=== PATIENT | male | born 1990 | race Caucasian/White ===

== ENCOUNTER 2017-11-05 15:11 | Emergency (ER) | payer OTHER ==
--- NOTE | 2017-11-05 17:18 | EDM.PDOC ---
ED HPI GENERAL MEDICAL PROBLEM - General Chief Complaint: Chemical Exposure Stated Complaint: CHEMICAL SPLASHED IN EYE Time Seen by Provider: 11/05/17 16:17 Source of Information: Reports: Patient History Limitations: Reports: No Limitations - History of Present Illness INITIAL COMMENTS - FREE TEXT/NARRATIVE: 26-year-old male presents for evaluation and treatment of chemical burn to the right eye. Patient reports that the injury occurred around noon. He states that he was at work. Reports that there was some sodium hydroxide in a pipe and it was pressurized. He states that he got splashed underneath his safety goggles in the right eye. He reports immediate pain. He Rinsed the eye for 10 minutes. They then contacted a physician, who is on-call for the company, He instructed them to wait to see if his symptoms will resolve. After not having much pain relief he decided to come to the ER. He was working [place] hour [place] [employer]. He is currently complaining of severe right eye pain, increased tearing, right blurry vision and double vision. No trauma to the left eye. He does not wear glasses or contacts. Reports has been several years since he was last seen in eye doctor. He states that his vision was better than 20/20. Poison was controlled call initially when the patient presented to the ER. Instructed to rinse the eye for 20 minutes. Instructed make sure the pH of the left eye is between 7 and 7.5. If not, continue to rinse the eye. He is unable to rinse the eye recommend proparacaine and a Cristofer lens. MSDS was faxed to the ER from the patient's work. They instructed rinsing at least continuously for 30 minutes. The sodium hydroxide is an alkali and causes eye damage, category 1. Acute and delayed symptoms include serious eye damage, cloudy appearance of Cornea, chemical linda, severe pain, tearing, ulcerations, significant thickening, impaired Vision or complete loss of vision. Onset: Today Right Eye Pain Score (Numeric/FACES): 5 - Related Data Allergies Allergy/AdvReac Type Severity Reaction Status Date / Time No Known Allergies Allergy Verified 11/05/17 16:38 Home Meds: Home Meds Erythromycin Base [Erythromycin 0.5% Ophth Oint] 1 applic EARRT Q4H #1 tube 10/12 [Rx] Ketorolac [Acular 0.5% Ophth Soln] 1 drop EYERT QID PRN #1 bottle 11/05/17 [Rx] Lisinopril 5 mg PO DAILY 11/05/17 [History] ED ROS GENERAL - Review of Systems Review Of Systems: See Below HEENT: Reports: Eye Discharge (increased tearingr), Eye Pain (right), Vision Change (blurry vision, double vision) ED EXAM, BURN/SMOKE INHALATION - Physical Exam Exam: See Below Exam Limited By: No Limitations General Appearance: Alert, WD/WN, Mild Distress Eye Exam: Right Eye: Conjunctival Injection, Corneal Abrasion (eye examined with fluorcein; chemical burn to the cornea present), Vision Changes (OD:20/>200 ; OS: 20/20), Bilateral Eye: PERRL Respiratory: No Respiratory Distress Neurological: Alert, Oriented, Normal Cognition Psychiatric: Normal Affect, Normal Mood Skin Exam: Warm, Dry, Normal Color Course - Vital Signs Last Recorded V/S: Last Vital Signs Temp 36.2 C 11/05/17 16:32 Pulse 85 11/05/17 16:32 Resp 18 11/05/17 16:32 BP 124/75 11/05/17 16:32 Pulse Ox 100 11/05/17 16:32 - Re-Assessments/Exams Free Text/Narrative Re-Assessment/Exam: 11/05/17 18:09 The patient rinsed the eye for 30-40 minutes upon arrival in the ER. He is then given proparacaine drops which significantly helped with the pain. He was then was able to open the eye. He reports blurry vision and some double vision. Is able to evaluate his eye. Slit-lamp exam shows forcing uptake and chemical burn around the cornea. No haziness to the cornea. PH of his eye was tested and was felt to be between 7.5 and 8. I then asked him to rinse his eye for an additional 15 minutes. He did so. He was then given some more proparacaine for pain relief. His pH was then closer to 7. Reportedly the [facility] has set up an appointment for an eye doctor for tomorrow. I do feel he needs close follow-up. I'll put him on erythromycin ointment and given some Acular drops. He'll follow up with an retail greeter tomorrow. Discharge instructions as documented. Departure - Departure Time of Disposition: 18:19 Disposition: Home, Self-Care 01 Condition: Fair Clinical Impression: Chemical burn due to alkali, conjunctiva or cornea Qualifiers: Encounter type: initial encounter Laterality: right Qualified Code(s): T26.61XA - Corrosion of cornea and conjunctival sac, right eye, initial encounter - Discharge Information Prescriptions: Erythromycin Base [Erythromycin 0.5% Ophth Oint] 1 applic EARRT Q4H #1 tube Ketorolac [Acular 0.5% Ophth Soln] 1 drop EYERT QID PRN #1 bottle PRN Reason: Pain Instructions: Chemical Burn, [id number] Referrals: PCP,None [Primary Care Provider] - Forms: ED Department Discharge Additional Instructions: acular as needed for pain. 1 gtt qid prn pain erythromycin every 4 hours x 5 days. follow-up with an eye doctor tomorrow. OTC tylenol or motrin as needed for additional pain relief. Please return to the ER should your symptoms change or worsen.
== END 2017-11-05 18:40 | disposition home or self-care (01) ==
LOC: JD.ED 15:11
DX: T54.3X1A Toxic effect of corrosive alkalis and alkali-like substances, accidental (unintentional), initial encounter (principal); T26.61XA Corrosion of cornea and conjunctival sac, right eye, initial encounter; Z79.899 Other long term (current) drug therapy; X58.XXXA Exposure to other specified factors, initial encounter; Y99.0 Civilian activity done for income or pay
CPT/HCPCS: 99283